=== PATIENT | male | born 1955 | race Caucasian/White ===

== ENCOUNTER 2021-08-26 17:38 | Inpatient (IN) ==
[2021-08-26 18:20] LABS: Basophils % 0.6 % (0.0-0.8); Eosinophils # 0.1 10*3/uL (0.0-0.87); Hematocrit 46.8 VOL% (42.0-52.0); Hemoglobin 16.4 GM/DL (14.0-18.0); Immature Granulocytes % 0.3 %; Immature Granulocytes Absolute 0.02 #; Lymphocytes # 1.2 10*3/uL (1.4-4.0); Lymphocytes % 16.5 % (21.2-54.2); Mean Corpuscular Volume 90.2 FL (87-102); Mean Platelet Volume 10.2 FL (9.6-12.0); Monocytes # 0.9 10*3/uL (0.11-0.8); Monocytes % 12.3 % (1.7-12.7); Neutrophils % 69.3 % (38.7-73.9); Platelet Count 176 T/CUMM (130-400); Red Blood Count 5.19 MC/CUMM (3.8-5.5); Red Cell Distribution Width 14.7 % (9.3-17.3); White Blood Count 7.1 T/CUMM (4-12)
[2021-08-26 18:29] LABS: INR 0.9; PT Patient Result 10.1 SECS (10.5-12.0); Partial Thromboplastin Time 27.2 SECS (23.8-32.1)
[2021-08-26 18:43] LABS: Albumin 3.7 G/DL (3.4-5.0); Bilirubin,Total 0.7 MG/DL (0.20-1.00); Osmolality,Calculated 278.1 MOS/KG (273-304); Potassium 3.8 MMOL/L (3.5-5.1); Total Protein 7.6 G/DL (6.4-8.2)
[2021-08-26] MEDS ORDERED: ENOXAPARIN 100 MG/ML SYRINGE SUBCUT STA (19:00)
[2021-08-26] MEDS ORDERED: ASPIRIN 325 MG TABLET PO STA (19:00)
[2021-08-26] MEDS ORDERED: FUROSEMIDE 20 MG/2 ML VIAL IV STA (19:18)
[2021-08-26] MEDS ORDERED: FUROSEMIDE 40 MG/4 ML VIAL ONE (19:26)
[2021-08-26] MEDS ORDERED: FUROSEMIDE 40 MG/4 ML VIAL IV STA (19:26)
[2021-08-26] MEDS ORDERED: MORPHINE 10 MG/1 ML VIAL IV STA (19:58)
[2021-08-26] MEDS ORDERED: ONDANSETRON 4 MG/2 ML VIAL IV STA (19:58)
[2021-08-26] MEDS ORDERED: MORPHINE 2 MG/1 ML SYRINGE IV STA (20:02)
[2021-08-26] MEDS ORDERED: METOPROLOL TARTRATE 5 MG/5 ML VIAL IV STA (20:46)
[2021-08-26] MEDS ORDERED: GLUCAGON 1 MG VIAL IM PRN (20:48)
[2021-08-26] MEDS ORDERED: ONDANSETRON 4 MG/2 ML VIAL IV PRN (20:48)
[2021-08-26] MEDS ORDERED: ACETAMINOPHEN 325 MG TABLET PO PRN (20:48)
[2021-08-26] MEDS ORDERED: DEXTROSE 10% 250 ML BAG IV PRN (20:48)
[2021-08-26] MEDS ORDERED: LORazepam 2 MG/1 ML VIAL IV PRN (21:08)
[2021-08-26] MEDS ORDERED: POTASSIUM CHLORIDE 20 MEQ TABLET PO PRN (21:33)
[2021-08-27] MEDS ORDERED: TICAGRELOR 90 MG TABLET PO STA (01:14)
[2021-08-27] MEDS: INSULIN LISPRO 100 UNIT/ML SUBCUT SCH ×5 (01:25→22:27)
[2021-08-27] MEDS: MORPHINE 2 MG/1 ML SYRINGE IV PRN ×2 (01:59→19:50)
[2021-08-27 03:08] LABS: Basophils % 0.4 % (0.0-0.8); Eosinophils # 0.1 10*3/uL (0.0-0.87); Eosinophils % 1.1 % (0.00-10.9); Hematocrit 46.3 VOL% (42.0-52.0); Hemoglobin 15.8 GM/DL (14.0-18.0); Immature Granulocytes % 0.4 %; Immature Granulocytes Absolute 0.03 #; Lymphocytes # 1.8 10*3/uL (1.4-4.0); Lymphocytes % 24.5 % (21.2-54.2); Mean Corpuscular HGB Conc 34.1 GM/DL (32-36); Mean Corpuscular Volume 88.7 FL (87-102); Mean Platelet Volume 10.5 FL (9.6-12.0); Monocytes # 0.9 10*3/uL (0.11-0.8); Monocytes % 12.7 % (1.7-12.7); Neutrophils % 60.9 % (38.7-73.9); Platelet Count 175 T/CUMM (130-400); Red Blood Count 5.22 MC/CUMM (3.8-5.5); White Blood Count 7.2 T/CUMM (4-12)
[2021-08-27 03:11] LABS: Calcium 8.6 MG/DL (8.5-10.1); Osmolality,Calculated 273.2 MOS/KG (273-304); Potassium 3.6 MMOL/L (3.5-5.1); Risk Ratio 4.72; Thyroid Stimulating Hormone 2.12 uIU/ml (0.358-3.74); VLDL Cholesterol 38.4 MG/DL
[2021-08-27] MEDS ORDERED: diphenhydrAMINE CAP 50 MG CAPSULE PO ONE (07:33)
[2021-08-27] MEDS ORDERED: DIAZEPAM 5 MG TABLET PO ONE (07:33)
[2021-08-27] MEDS ORDERED: ENOXAPARIN 100 MG/ML SYRINGE SUBCUT SCH (08:00)
[2021-08-27] MEDS ORDERED: SODIUM CHLORIDE 0.9% 1,000 ML IV SCH (08:00)
[2021-08-27] MEDS ORDERED: ASPIRIN EC 325 MG TABLET PO SCH (09:00)
[2021-08-27] MEDS: TICAGRELOR 90 MG TABLET PO SCH ×2 (10:17→21:41)
[2021-08-27] MEDS: PANTOPRAZOLE 40 MG TABLET PO SCH (10:17)
[2021-08-27] MEDS: THIAMINE 100 MG TABLET PO SCH (12:35)
[2021-08-27] MEDS: FOLIC ACID 1 MG TABLET PO SCH (12:35)
[2021-08-27] MEDS ORDERED: HYDROmorphone 1 MG/1 ML SYRINGE ONE (13:26)
[2021-08-27] MEDS ORDERED: MIDAZOLAM 2 MG/2 ML VIAL ONE (13:27)
[2021-08-27] MEDS ORDERED: VERAPAMIL 5 MG/2 ML VIAL ONE ×2 (13:27→13:37)
[2021-08-27] MEDS ORDERED: NITROGLYCERIN DRIP 50 MG/250 ML BOTTLE IV ONE (13:30)
[2021-08-27] MEDS ORDERED: TIROFIBAN 5,000 MCG/100 ML PREMIX IV ONE (14:13)
[2021-08-27] MEDS ORDERED: LABETALOL 20 MG/4 ML SYRINGE IV ONE (14:36)
[2021-08-27] MEDS: ROSUVASTATIN 20 MG TABLET PO SCH (16:17)
[2021-08-27] MEDS: NITROGLYCERIN SL 0.4 MG TABLET SL PRN ×3 (19:50→20:24)
[2021-08-27] MEDS ORDERED: MORPHINE 2 MG/1 ML SYRINGE IV ONE (20:37)
[2021-08-27] MEDS: carvediloL 3.125 MG TABLET PO SCH (21:42)
[2021-08-28 05:33] LABS: Calcium 8.1 MG/DL (8.5-10.1)
[2021-08-28 05:37] LABS: Basophils % 0.3 % (0.0-0.8); Eosinophils % 0.4 % (0.00-10.9); Hematocrit 43.2 VOL% (42.0-52.0); Hemoglobin 14.4 GM/DL (14.0-18.0); Immature Granulocytes Absolute 0.07 #; Lymphocytes # 1.3 10*3/uL (1.4-4.0); Lymphocytes % 17.9 % (21.2-54.2); Mean Corpuscular HGB Conc 33.3 GM/DL (32-36); Mean Corpuscular Volume 91.1 FL (87-102); Mean Platelet Volume 10.5 FL (9.6-12.0); Monocytes # 0.9 10*3/uL (0.11-0.8); Monocytes % 12.2 % (1.7-12.7); Neutrophils % 68.2 % (38.7-73.9); Platelet Count 141 T/CUMM (130-400); Red Blood Count 4.74 MC/CUMM (3.8-5.5); Red Cell Distribution Width 13.9 % (9.3-17.3); White Blood Count 7.1 T/CUMM (4-12)
[2021-08-28 05:42] LABS: Platelet Estimate Adequate
[2021-08-28] MEDS: INSULIN LISPRO 100 UNIT/ML SUBCUT SCH ×4 (08:20→22:06)
[2021-08-28] MEDS: ROSUVASTATIN 20 MG TABLET PO SCH (08:56)
[2021-08-28] MEDS: FOLIC ACID 1 MG TABLET PO SCH (08:56)
[2021-08-28] MEDS: ASPIRIN CHEW 81 MG TABLET PO SCH (08:56)
[2021-08-28] MEDS: THIAMINE 100 MG TABLET PO SCH (08:56)
[2021-08-28] MEDS: TICAGRELOR 90 MG TABLET PO SCH ×2 (08:57→22:05)
[2021-08-28] MEDS: PANTOPRAZOLE 40 MG TABLET PO SCH (08:57)
[2021-08-28] MEDS: carvediloL 3.125 MG TABLET PO SCH ×2 (08:57→22:05)
[2021-08-28] MEDS: SACUBITRIL/VALSARTAN 49-51 MG TABLET PO SCH ×2 (11:51→22:06)
[2021-08-28] MEDS: ISOSORBIDE MONONITRATE 30 MG TABLET PO SCH (11:51)
[2021-08-28] MEDS ORDERED: ALUMINUM/MAGNES/SIMETH MAX STR 30 ML UDCUP PO PRN (12:20)
[2021-08-28] MEDS ORDERED: SPIRONOLACTONE 25 MG TABLET PO ONE (15:30)
[2021-08-28] MEDS ORDERED: DAPAGLIFLOZIN 5 MG TABLET PO ONE (15:30)
[2021-08-28] MEDS ORDERED: AMIODARONE INJ 150 MG in DEXTROSE 5% 100 ML IV ONE (18:58)
[2021-08-28] MEDS ORDERED: AMIODARONE INJ 450 MG in DEXTROSE 5% 241 ML IV SCH (19:00)
[2021-08-28] MEDS: APIXABAN 5 MG TABLET PO SCH (22:05)
[2021-08-29] MEDS ORDERED: AMIODARONE INJ 450 MG in DEXTROSE 5% 241 ML IV SCH (01:00)
[2021-08-29 08:46] LABS: Calcium 8.6 MG/DL (8.5-10.1); Osmolality,Calculated 278.8 MOS/KG (273-304); Potassium 3.9 MMOL/L (3.5-5.1)
[2021-08-29 08:58] LABS: Basophils % 0.3 % (0.0-0.8); Eosinophils # 0.1 10*3/uL (0.0-0.87); Eosinophils % 1.8 % (0.00-10.9); Hematocrit 44.2 VOL% (42.0-52.0); Immature Granulocytes % 0.3 %; Immature Granulocytes Absolute 0.02 #; Lymphocytes # 1.6 10*3/uL (1.4-4.0); Lymphocytes % 24.1 % (21.2-54.2); Mean Corpuscular HGB Conc 33.5 GM/DL (32-36); Mean Corpuscular Volume 89.8 FL (87-102); Mean Platelet Volume 10.5 FL (9.6-12.0); Monocytes # 0.9 10*3/uL (0.11-0.8); Monocytes % 13.9 % (1.7-12.7); Neutrophils % 59.6 % (38.7-73.9); Platelet Count 189 T/CUMM (130-400); Red Blood Count 4.92 MC/CUMM (3.8-5.5); Red Cell Distribution Width 13.9 % (9.3-17.3); White Blood Count 6.6 T/CUMM (4-12)
[2021-08-29 08:59] LABS: Hemoglobin 14.8 GM/DL (14.0-18.0)
[2021-08-29] MEDS ORDERED: SPIRONOLACTONE 25 MG TABLET PO SCH (09:00)
[2021-08-29] MEDS ORDERED: ASCORBIC ACID 500 MG TABLET PO SCH (09:00)
[2021-08-29] MEDS ORDERED: DAPAGLIFLOZIN 10 MG TABLET PO SCH (09:00)
[2021-08-29] MEDS: TICAGRELOR 90 MG TABLET PO SCH (09:07)
[2021-08-29] MEDS: INSULIN LISPRO 100 UNIT/ML SUBCUT SCH ×3 (09:07→16:45)
[2021-08-29] MEDS: ASPIRIN CHEW 81 MG TABLET PO SCH (09:07)
[2021-08-29] MEDS: PANTOPRAZOLE 40 MG TABLET PO SCH (09:07)
[2021-08-29] MEDS: FOLIC ACID 1 MG TABLET PO SCH (09:08)
[2021-08-29] MEDS: ROSUVASTATIN 20 MG TABLET PO SCH (09:08)
[2021-08-29] MEDS: ISOSORBIDE MONONITRATE 30 MG TABLET PO SCH (09:08)
[2021-08-29] MEDS: SACUBITRIL/VALSARTAN 49-51 MG TABLET PO SCH (09:08)
[2021-08-29] MEDS: APIXABAN 5 MG TABLET PO SCH (09:08)
[2021-08-29] MEDS: THIAMINE 100 MG TABLET PO SCH (09:08)
[2021-08-29] MEDS: carvediloL 3.125 MG TABLET PO SCH (09:09)
[2021-08-29] MEDS ORDERED: POTASSIUM CHLORIDE 20 MEQ TABLET PO ONE (10:52)
[2021-08-29] MEDS ORDERED: AMIODARONE 200 MG TABLET PO SCH (13:00)
[2021-08-29] MEDS ORDERED: carvediloL 3.125 MG TABLET PO ONE (17:14)
[2021-08-29] MEDS ORDERED: AMIODARONE 200 MG TABLET PO ONE (17:14)
[2021-08-29] MEDS ORDERED: TICAGRELOR 90 MG TABLET PO ONE (17:14)
[2021-08-29 18:35] VITALS: BP 114/70
== END 2021-08-29 18:23 | disposition home or self-care (01) | DRG 246 ==
LOC: N.ED 17:38 → SUATTDRO 20:48 → N.EDINP 20:48 → N.TELES 08-27 01:36
PROVIDERS: ADMIT Internal Medicine; ATTEND Internal Medicine
PROC: CLCCHCL (ICD-10-PCS; 2021-08-27 12:15)